=== PATIENT | male | born 1965 | race African-American/Black ===

== ENCOUNTER 2017-08-11 15:33 | Emergency (ER) | payer OTHER ==
[~2017-08-11] VITALS: Ht 165.1 cm; Wt 122.5 kg
[~2017-08-11 15:33] MED LIST: CATAFLAM50 MG PO; FLEXERIL5 MG PO; NORFLEX100 MG PO; ULTRAM50 MG PO; VICODIN 5/500 505 MG PO
[2017-08-11] MEDS ORDERED: NAPROSYN500 MG PO (15:54)
[2017-08-11] MEDS ORDERED: CHLORZOXAZONE500 M2 PO (15:54)
[2017-08-11] MEDS ORDERED: LIPITOR10 MG PO (16:06)
[2017-08-11] MEDS ORDERED: METFORMIN750 MG PO (16:07)
[2017-08-11] MEDS ORDERED: AMLODIPINE BESYL5 MG PO (16:07)
[2017-08-11] MEDS ORDERED: LISINOPRIL2.5 MG PO (16:08)
== END 2017-08-11 17:25 | disposition home or self-care (01) ==
LOC: ED 15:33
DX: M54.5 Low back pain (principal); Z79.899 Other long term (current) drug therapy

== ENCOUNTER → 2018-07-19 | Outpatient (CLI) | payer OTHER ==
[~2018-07-19] MED LIST changes: +AMLODIPINE BESYL5 MG PO; +CHLORZOXAZONE500 M2 PO; +LIPITOR10 MG PO; +LISINOPRIL2.5 MG PO; +METFORMIN750 MG PO; +NAPROSYN500 MG PO
== END | disposition home or self-care (01) ==
LOC: LAB 13:00
DX: E11.65 Type 2 diabetes mellitus with hyperglycemia (principal)

== ENCOUNTER 2019-12-30 15:35 | Inpatient (IN) | payer BC ==
[~2019-12-30] VITALS: Ht 170.1 cm; Wt 134.9 kg
[~2019-12-30 15:35] MED LIST changes: +METFORMIN HYDR500 MG PO; -METFORMIN750 MG PO
[2019-12-30 15:46] VITALS: BP 138/81
[2019-12-30 16:07] LABS: BASO % 0.1 % (0.0-1.0); HEMATOCRIT 42.8 % (42.0-52.0); LYMPH # 3.1 10*3/uL (1.3-4.4); LYMPH % 37.2 % (27.0-41.0); MEAN CELL VOLUME 91.5 fl (80.0-94.0); MEAN CORPUSCULAR HGB 30.6 pg (27.0-31.0); MEAN CORPUSCULAR HGB CONC 33.4 g/dl (33.0-37.0); MEAN PLATELET VOLUME 9.1 fl (9.6-12.3); MONO # 0.4 10*3/uL (0.1-1.0); MONO % 5.4 % (3.0-9.0); NEUT # 4.7 10*3/uL (2.3-7.9); NEUT % 57.1 % (47.0-73.0); PLATELET COUNT AUTOMATED 209 10*3/uL (130-400); RED BLOOD COUNT 4.68 10*6/uL (4.50-5.90); RED CELL DISTRI WIDTH 12.4 % (0-14.5); WHITE BLOOD COUNT 8.2 10*3/uL (4.8-10.8)
[2019-12-30 16:21] LABS: ACT PARTIAL THROMBO TIME 28.9 SECONDS (20.0-32.1)
[2019-12-30 16:24] LABS: ALBUMIN 2.9 gm/dl (3.1-4.5); ALKALINE PHOSPHATASE 61 U/L (45-117); BUN 10 mg/dl (7-24); CHLORIDE 105 mmol/L (98-107); CREATININE 1.04 mg/dL (0.70-1.30); POTASSIUM 3.8 mmol/L (3.5-5.1); SGOT/AST 25 IU/L (3-35); SGPT/ALT 39 U/L (12-78); SODIUM 135 mmol/L (136-145); TOTAL PROTEIN 7.3 gm/dL (6.4-8.2)
[2019-12-30 16:28] LABS: TROPONIN I < 0.015 ng/ml (<0.045)
--- NOTE | 2019-12-30 16:49 | NUR ---
PT. RESTING IN BED WATCHING TV. APPEARS TO BE IN NO DISTRESS AT THIS TIME. RR EASY AND NON-LABORED. CALL LIGHT WITHIN REACH. WILL CONTINUE TO MONITOR.
[2019-12-30 18:53] VITALS: BP 114/73
--- NOTE | 2019-12-30 18:58 | NUR ---
PT. RESTING IN BED WATCHING TV. RR EASY AND NON-LABORED. CALL LIGHT WITHIN REACH. WILL CONTINUE TO MONITOR.
--- NOTE | 2019-12-30 19:10 | NUR ---
nurse to nurse report given to this rn
[2019-12-30 20:15] VITALS: BP 107/77
[2019-12-30 23:04] VITALS: BP 107/77; BP 110/78
--- NOTE | 2019-12-30 23:15 | NUR ---
PATIENT RESTING IN BED AT THIS TIME. RESPIRATIONS EASY, NON-LABORED ON ROOM AIR. PATIENT DENIES ANY NEEDS AT THIS TIME. CALL LIGHT WITHIN REACH. RN WILL CONTINUE TO MONITOR.
--- NOTE | 2019-12-31 03:20 | NUR ---
PATIENT RESTING QUIETLY IN BED AT THIS TIME. PATIENT DENIES ANY NEEDS. RESPIRATIONS EASY, NON-LABORED ON ROOM AIR. RN WILL CONTINUE TO MONITOR.
[2019-12-31 05:59] LABS: ALBUMIN 2.9 gm/dl (3.1-4.5); ALKALINE PHOSPHATASE 63 U/L (45-117); BUN 10 mg/dl (7-24); CHLORIDE 103 mmol/L (98-107); CHOLESTEROL 159 mg/dL (<200); CPK 73 U/L (39-308); CREATININE 0.87 mg/dL (0.70-1.30); LDH 166 U/L (87-241); POTASSIUM 4.2 mmol/L (3.5-5.1); SGOT/AST 26 IU/L (3-35); SGPT/ALT 37 U/L (12-78); SODIUM 134 mmol/L (136-145); TOTAL PROTEIN 7.4 gm/dL (6.4-8.2); TRIGLYCERIDES 97 mg/dl (<150); VLDL CHOLESTEROL 19 mg/dL (6-40)
[2019-12-31 06:00] LABS: HDL CHOLESTEROL 34 mg/dl (40-60); LDL CHOLESTEROL 106 mg/dL (9-159)
[2019-12-31 06:01] LABS: HEMATOCRIT 43.4 % (42.0-52.0); LYMPH # 1.5 10*3/uL (1.3-4.4); LYMPH % 26.2 % (27.0-41.0); MEAN CELL VOLUME 91.6 fl (80.0-94.0); MEAN CORPUSCULAR HGB 30.2 pg (27.0-31.0); MEAN CORPUSCULAR HGB CONC 32.9 g/dl (33.0-37.0); MEAN PLATELET VOLUME 9.6 fl (9.6-12.3); MONO # 0.2 10*3/uL (0.1-1.0); MONO % 3.9 % (3.0-9.0); NEUT # 4.1 10*3/uL (2.3-7.9); NEUT % 69.6 % (47.0-73.0); PLATELET COUNT AUTOMATED 222 10*3/uL (130-400); RED BLOOD COUNT 4.74 10*6/uL (4.50-5.90); RED CELL DISTRI WIDTH 12.2 % (0-14.5); WHITE BLOOD COUNT 5.9 10*3/uL (4.8-10.8)
[2019-12-31 06:53] LABS: FERRITIN 985.1 ng/mL (22.0-322.0)
--- NOTE | 2019-12-31 07:31 | NUR ---
PATIENT REPORT FROM TEJ KHAN AT THIS TIME.
[2019-12-31 10:08] VITALS: BP 115/70
--- NOTE | 2019-12-31 14:54 | NUR ---
PATIENT ASSIGNED ROOM. WAITING FOR ROOM TO BE CLEANED.
--- NOTE | 2019-12-31 15:47 | NUR ---
10 MORE MINUTES AND PATIENT CAN GO UPSTAIRS. ROOM TO BE CLEANED ENTIRELY THEN. PATIENT STILL IN ER AT THIS TIME.
[2019-12-31] MEDS ORDERED: ASPIRIN ADULT L81 M1 PO (15:57)
[2019-12-31 16:05] VITALS: BP 105/67
--- NOTE | 2019-12-31 16:05 | NUR ---
PATIENT TAKEN TO 4TH FLOOR AT THIS TIME. BEDSIDE REPORT GIVEN TO ZION GAINES RN AT THIS TIME WELL.
--- NOTE | 2019-12-31 17:22 | NUR ---
Spoke with Dr. Mayer regarding pt. States he was aware of consult and saw pt in ER today.
[2019-12-31 20:00] VITALS: BP 133/76
--- NOTE | 2019-12-31 21:25 | NUR ---
PT RESTING IN BED. RESP-EASY AND REGULAR. BSG-206, SEE EMAR. NO C/O AT THIS TIME. CALL LIGHT IN REACH. SEE SHIFT ASSESSMENT.
[2020-01-01] VITALS: BP 119/68
--- NOTE | 2020-01-01 05:40 | NUR ---
RESTING IN BED WITH EYES CLOSED. RESP-EASY AND REGULAR. BSG-161, SEE EMAR. CALL LIGHT IN REACH.
[2020-01-01 05:55] LABS: ALBUMIN 2.7 gm/dl (3.1-4.5); ALKALINE PHOSPHATASE 58 U/L (45-117); BUN 14 mg/dl (7-24); CHLORIDE 105 mmol/L (98-107); CPK 74 U/L (39-308); CREATININE 0.87 mg/dL (0.70-1.30); LDH 167 U/L (87-241); POTASSIUM 4.3 mmol/L (3.5-5.1); SGOT/AST 33 IU/L (3-35); SGPT/ALT 53 U/L (12-78); SODIUM 136 mmol/L (136-145); TOTAL PROTEIN 7.3 gm/dL (6.4-8.2)
[2020-01-01 06:16] LABS: BASO % 0.2 % (0.0-1.0); HEMATOCRIT 41.1 % (42.0-52.0); LYMPH # 1.8 10*3/uL (1.3-4.4); LYMPH % 29.7 % (27.0-41.0); MEAN CELL VOLUME 90.3 fl (80.0-94.0); MEAN CORPUSCULAR HGB 30.5 pg (27.0-31.0); MEAN CORPUSCULAR HGB CONC 33.8 g/dl (33.0-37.0); MEAN PLATELET VOLUME 9.7 fl (9.6-12.3); MONO # 0.5 10*3/uL (0.1-1.0); MONO % 7.5 % (3.0-9.0); NEUT # 3.8 10*3/uL (2.3-7.9); NEUT % 62.4 % (47.0-73.0); PLATELET COUNT AUTOMATED 265 10*3/uL (130-400); RED BLOOD COUNT 4.55 10*6/uL (4.50-5.90); RED CELL DISTRI WIDTH 12.1 % (0-14.5)
[2020-01-01 08:00] VITALS: BP 109/70
[2020-01-01 11:40] VITALS: BP 118/70
[2020-01-01 12:00] VITALS: BP 110/60
[2020-01-01 16:00] VITALS: BP 103/66
[2020-01-01 20:00] VITALS: BP 129/73
--- NOTE | 2020-01-01 20:30 | NUR ---
PT SITTING UP IN BED WATCHING TV AT THIS TIME. NO S/S OF DISTRESS NOTED. RESPS ARE EASY AND NONLABORED. VITALS WNL. PT STATES THAT HE "FEELS FINE". NO OTHER C/O VOICED. BED LOW, CALL LIGHT WITHIN REACH. WILL CONTINUE TO MONITOR.
[2020-01-02] VITALS: BP 140/68
[2020-01-02 06:35] LABS: BASO % 0.2 % (0.0-1.0); HEMATOCRIT 39.4 % (42.0-52.0); LYMPH # 2.5 10*3/uL (1.3-4.4); LYMPH % 39.7 % (27.0-41.0); MEAN CELL VOLUME 92.5 fl (80.0-94.0); MEAN CORPUSCULAR HGB 30.5 pg (27.0-31.0); MEAN PLATELET VOLUME 9.4 fl (9.6-12.3); MONO # 0.7 10*3/uL (0.1-1.0); MONO % 10.7 % (3.0-9.0); NEUT # 3.1 10*3/uL (2.3-7.9); NEUT % 48.9 % (47.0-73.0); PLATELET COUNT AUTOMATED 279 10*3/uL (130-400); RED BLOOD COUNT 4.26 10*6/uL (4.50-5.90); RED CELL DISTRI WIDTH 12.2 % (0-14.5); WHITE BLOOD COUNT 6.3 10*3/uL (4.8-10.8)
[2020-01-02 06:49] LABS: ALBUMIN 2.6 gm/dl (3.1-4.5); BUN 16 mg/dl (7-24); CHLORIDE 108 mmol/L (98-107); CREATININE 0.93 mg/dL (0.70-1.30); LDH 154 U/L (87-241); POTASSIUM 3.8 mmol/L (3.5-5.1); SGOT/AST 23 IU/L (3-35); SGPT/ALT 44 U/L (12-78); SODIUM 141 mmol/L (136-145); TOTAL PROTEIN 7.1 gm/dL (6.4-8.2)
[2020-01-02 06:50] LABS: ALKALINE PHOSPHATASE 54 U/L (45-117)
[2020-01-02 06:56] LABS: CPK 50 U/L (39-308)
[2020-01-02 08:00] VITALS: BP 124/72
[2020-01-02] MEDS ORDERED: XARE20MG PO (11:15)
[2020-01-02] MEDS ORDERED: XARE15TA PO (11:15)
[2020-01-02] MEDS ORDERED: DECADRON4 MG PO (11:15)
[2020-01-02] MEDS ORDERED: AVPAK AZITHROM250 M1 PO (11:18)
--- NOTE | 2020-01-02 13:15 | NUR ---
Discharge instructions reviewed with patient/family. Patient receptive and verbalizes understanding. Follow-up care arranged. Written instructions given to patient/family, IV REMOVED, TELEMETRY REMOVED, REVIEWED patients need to quarenrtine at home, refused w/c for discharge. BEULAH COFFMAN
== END 2020-01-02 13:15 | disposition home or self-care (01) | DRG 177 ==
LOC: ED 15:35 → EDHOLD 20:53 → 4E 12-31 14:29
PROVIDERS: Family Medicine; Internal Medicine; ADMIT Internal Medicine; ATTEND Internal Medicine
DX: U07.1 COVID-19 (principal); I26.99 Other pulmonary embolism without acute cor pulmonale; J12.89 Other viral pneumonia; D68.59 Other primary thrombophilia; E87.1 Hypo-osmolality and hyponatremia; E44.0 Moderate protein-calorie malnutrition; Z68.43 Body mass index [BMI] 50.0-59.9, adult; I10 Essential (primary) hypertension; E78.5 Hyperlipidemia, unspecified; E66.01 Morbid (severe) obesity due to excess calories; E11.65 Type 2 diabetes mellitus with hyperglycemia; E55.9 Vitamin D deficiency, unspecified; E11.69 Type 2 diabetes mellitus with other specified complication; R79.82 Elevated C-reactive protein (CRP); R00.0 Tachycardia, unspecified; R79.89 Other specified abnormal findings of blood chemistry

== ENCOUNTER → 2020-11-01 | Outpatient (CLI) | payer BC ==
[~2020-11-01] MED LIST changes: +ASPIRIN ADULT L81 M1 PO; +AVPAK AZITHROM250 M1 PO; +DECADRON4 MG PO; +XARE15TA PO; +XARE20MG PO
== END | disposition home or self-care (01) ==
LOC: US 14:37
PROVIDERS: ATTEND Internal Medicine
DX: N28.1 Cyst of kidney, acquired (principal); R31.9 Hematuria, unspecified; Z96.0 Presence of urogenital implants

== ENCOUNTER → 2020-11-19 | Outpatient (CLI) | payer BC | END | disposition home or self-care (01) | LOC: US 11-17 15:30 | PROVIDERS: ATTEND Internal Medicine | DX: M79.89 Other specified soft tissue disorders (principal) ==

== ENCOUNTER → 2020-12-13 | Outpatient (CLI) | payer BC ==
[2020-12-13 11:11] LABS: BASO % 0.3 % (0.0-1.0); EOS # 0.1 10*3/uL (0.0-0.4); EOS % 1.3 % (1.0-4.0); HEMATOCRIT 41.3 % (42.0-52.0); LYMPH % 42.3 % (27.0-41.0); MEAN CELL VOLUME 93.7 fl (80.0-94.0); MEAN CORPUSCULAR HGB 31.1 pg (27.0-31.0); MEAN CORPUSCULAR HGB CONC 33.2 g/dl (33.0-37.0); MEAN PLATELET VOLUME 8.7 fl (9.6-12.3); MONO # 0.6 10*3/uL (0.1-1.0); MONO % 8.5 % (3.0-9.0); NEUT # 3.4 10*3/uL (2.3-7.9); NEUT % 47.2 % (47.0-73.0); PLATELET COUNT AUTOMATED 286 10*3/uL (130-400); RED BLOOD COUNT 4.41 10*6/uL (4.50-5.90); RED CELL DISTRI WIDTH 12.6 % (0-14.5); WHITE BLOOD COUNT 7.1 10*3/uL (4.8-10.8)
[2020-12-13 11:11] LABS: BILIRUBIN Negative (Negative); BLOOD 2+ (Negative); CLARITY Clear (Clear); COLOR Yellow (Yellow); GLUCOSE Negative (Negative); KETONE Trace (Negative); LEUKO ESTERASE Negative (Negative); NITRITE Negative (Negative); SPECIFIC GRAVITY 1.025 (1.001-1.030)
[2020-12-13 11:24] LABS: ALKALINE PHOSPHATASE 79 U/L (45-117); BUN 16 mg/dl (7-24); CHLORIDE 110 mmol/L (98-107); CREATININE 1.18 mg/dL (0.70-1.30); POTASSIUM 4.5 mmol/L (3.5-5.1); SGOT/AST 16 IU/L (3-35); SGPT/ALT 45 U/L (12-78); SODIUM 141 mmol/L (136-145); TOTAL PROTEIN 7.3 gm/dL (6.4-8.2)
[2020-12-13 11:29] LABS: RBC 0-2 rbc/hpf (0-2)
[2020-12-14 20:07] LABS: TESTOSTERONE FREE, (DIRECT) 4.9 pg/mL (7.2-24.0)
== END | disposition home or self-care (01) ==
LOC: LAB 10:35 → CT 11:00
PROVIDERS: ATTEND Urology
DX: Z12.5 Encounter for screening for malignant neoplasm of prostate (principal); K76.0 Fatty (change of) liver, not elsewhere classified

== ENCOUNTER 2022-06-23 00:23 | Emergency (ER) | payer BC ==
[~2022-06-23] VITALS: Ht 165.1 cm; Wt 131.5 kg
[2022-06-23] MEDS ORDERED: TRULICITY4.5 MG/0.5 SQ (00:32)
[2022-06-23] MEDS ORDERED: VITAMIN D3125 MCG PO (00:33)
[2022-06-23 01:56] LABS: BILIRUBIN Negative (Negative); BLOOD 3+ (Negative); CLARITY Cloudy (Clear); COLOR Dark Yellow (Yellow); GLUCOSE Negative (Negative); KETONE Trace (Negative); LEUKO ESTERASE 2+ (Negative); NITRITE Positive (Negative); PH 5.5 (4.5-8.0)
[2022-06-23 02:10] LABS: BACTERIA 3+
[2022-06-23 02:11] LABS: RBC 31-40 rbc/hpf (0-2); WBC 41-50 wbc/hpf (0-5)
[2022-06-23 02:29] LABS: BASO % 0.2 % (0.0-1.0); EOS # 0.1 10*3/uL (0.0-0.4); EOS % 1.1 % (1.0-4.0); HEMATOCRIT 41.8 % (42.0-52.0); LYMPH % 26.8 % (27.0-41.0); MEAN CELL VOLUME 91.5 fl (80.0-94.0); MEAN CORPUSCULAR HGB 31.3 pg (27.0-31.0); MEAN CORPUSCULAR HGB CONC 34.2 g/dl (33.0-37.0); MONO # 1.3 10*3/uL (0.1-1.0); MONO % 11.3 % (3.0-9.0); NEUT # 6.8 10*3/uL (2.3-7.9); NEUT % 60.2 % (47.0-73.0); PLATELET COUNT AUTOMATED 244 10*3/uL (130-400); RED BLOOD COUNT 4.57 10*6/uL (4.50-5.90); RED CELL DISTRI WIDTH 13.3 % (0-14.5); WHITE BLOOD COUNT 11.3 10*3/uL (4.8-10.8)
[2022-06-23 02:48] LABS: BUN 9 mg/dl (9-23); CHLORIDE 105 mmol/L (98-107); POTASSIUM 3.5 mmol/L (3.4-5.1)
[2022-06-23] MEDS ORDERED: MIRALAX POWDER17 G1 PO (03:29)
[2022-06-23] MEDS ORDERED: CIPRO500 MG PO (03:29)
== END 2022-06-23 03:32 | disposition home or self-care (01) ==
LOC: ED 00:23
PROVIDERS: Internal Medicine
DX: N39.0 Urinary tract infection, site not specified (principal); K59.00 Constipation, unspecified; Z79.899 Other long term (current) drug therapy; Z79.82 Long term (current) use of aspirin

== ENCOUNTER 2022-08-05 18:23 | Emergency (ER) | payer BC ==
[~2022-08-05 18:23] MED LIST changes: +CIPRO500 MG PO; +MIRALAX POWDER17 G1 PO; +TRULICITY4.5 MG/0.5 SQ; +VITAMIN D3125 MCG PO
[2022-08-05] MEDS ORDERED: NAPROSYN500 MG PO (19:55)
[2022-08-05 22:10] LABS: COLOR Yellow (Yellow)
[2022-08-05 22:11] LABS: BILIRUBIN Negative (Negative); BLOOD 1+ (Negative); CLARITY Clear (Clear); GLUCOSE Negative (Negative); KETONE Trace (Negative); LEUKO ESTERASE Negative (Negative); NITRITE Negative (Negative); PH 5.5 (4.5-8.0); WBC 0-2 wbc/hpf (0-5)
[2022-08-05 22:12] LABS: ALKALINE PHOSPHATASE 84 U/L (46-116); BACTERIA TRACE; BUN 8 mg/dl (9-23); CHLORIDE 106 mmol/L (98-107); MUCOUS TRACE; POTASSIUM 4.4 mmol/L (3.4-5.1); SGPT/ALT 30 U/L (10-49); TOTAL PROTEIN 7.2 gm/dL (6.0-8.0)
[2022-08-05 22:13] LABS: EOS % 1.2 % (1.0-4.0); HEMATOCRIT 45.7 % (42.0-52.0); LYMPH % 38.9 % (27.0-41.0); MEAN CELL VOLUME 95.2 fl (80.0-94.0); MEAN CORPUSCULAR HGB 31.7 pg (27.0-31.0); MEAN CORPUSCULAR HGB CONC 33.3 g/dl (33.0-37.0); MEAN PLATELET VOLUME 8.7 fl (9.6-12.3); MONO % 7.9 % (3.0-9.0); NEUT % 51.6 % (47.0-73.0); PLATELET COUNT AUTOMATED 299 10*3/uL (130-400); WHITE BLOOD COUNT 9.2 10*3/uL (4.8-10.8)
[2022-08-05 22:14] LABS: BASO % 0.2 % (0.0-1.0); EOS # 0.1 10*3/uL (0.0-0.4); LYMPH # 3.6 10*3/uL (1.3-4.4); MONO # 0.7 10*3/uL (0.1-1.0); NEUT # 4.7 10*3/uL (2.3-7.9)
== END 2022-08-05 20:09 | disposition home or self-care (01) ==
LOC: ED 18:23
PROVIDERS: Nurse Practitioner Family
DX: M54.50 Low back pain, unspecified (principal); E11.9 Type 2 diabetes mellitus without complications; I10 Essential (primary) hypertension; Z79.899 Other long term (current) drug therapy

== ENCOUNTER → 2024-04-28 | Outpatient (CLI) | payer BC ==
[2024-04-28 08:52] LABS: BASO % 0.1 % (0.0-1.0); EOS # 0.1 10*3/uL (0.0-0.4); HEMATOCRIT 44.4 % (42.0-52.0); MEAN CELL VOLUME 93.9 fl (80.0-94.0); MEAN CORPUSCULAR HGB 30.7 pg (27.0-31.0); MEAN CORPUSCULAR HGB CONC 32.7 g/dl (33.0-37.0); MEAN PLATELET VOLUME 8.3 fl (9.6-12.3); MONO # 0.7 10*3/uL (0.1-1.0); MONO % 8.7 % (3.0-9.0); NEUT # 4.3 10*3/uL (2.3-7.9); NEUT % 50.6 % (47.0-73.0); PLATELET COUNT AUTOMATED 244 10*3/uL (130-400); RED BLOOD COUNT 4.73 10*6/uL (4.50-5.90); RED CELL DISTRI WIDTH 12.7 % (0-14.5); WHITE BLOOD COUNT 8.4 10*3/uL (4.8-10.8)
[2024-04-28 09:31] LABS: ALKALINE PHOSPHATASE 64 U/L (46-116); BUN 12 mg/dl (9-23); CHLORIDE 103 mmol/L (98-107); FREE T4 1.02 ng/dl (0.89-1.76); POTASSIUM 3.9 mmol/L (3.4-5.1); SGPT/ALT 9 U/L (5-49); TOTAL PROTEIN 6.7 gm/dL (6.0-8.0); URIC ACID 6.5 mg/dL (3.7-9.2)
[2024-04-29 11:05] LABS: ANTI-DSDNA ANTIBODIES <1 IU/mL (0-9)
[2024-04-29 14:05] LABS: CCP ANTIBODIES IGG/IGA 6 units (0-19)
== END | disposition home or self-care (01) ==
LOC: LAB 08:35
PROVIDERS: ATTEND Internal Medicine
DX: M25.50 Pain in unspecified joint (principal)